=== PATIENT | male | born 1950 | race Caucasian/White ===

== ENCOUNTER → 2020-07-23 12:49 | Outpatient (BNVA) | payer MEDICARE, SELFPAY | PROVIDERS: Visit Provider Family Medicine | DX: Z01.812 Encounter for preprocedural laboratory examination (principal); Z20.828 Contact with and (suspected) exposure to other viral communicable diseases | CPT/HCPCS: 87635 ==

== ENCOUNTER 2021-05-19 08:26 | Outpatient (CLI) | payer MEDICARE, SELFPAY ==
--- NOTE | 2021-05-19 08:38 | XR_ITS ---
WS: [id number] LUMBAR SPINE TECHNIQUE: 3 views of the lumbar spine CLINICAL INFORMATION: BACK PAIN, LUMBAR, WITH RADICULOPATHY COMPARISON: None. FINDINGS: Five ydy-jna-aiosdtt lumbar vertebral bodies. Disc space heights are well preserved. No compression f ractures. Mild facet arthropathy L4-L5 and L5-S1. Vascular calcification.Slightly aneurysmal infraren al abdominal aorta measuring 3.2 cm in AP dimension. XR/XR lumbar spine 2-3V* [id number] IMPRESSION: 1. No acute lumbar spine findings. 2. Slightly aneurysmal infrarenal abdominal aorta measuring 3.2 cm in AP dimen deena. This can be further evaluated with ultrasound or CT abdomen pelvis.
== END 2021-05-19 08:27 | disposition home or self-care (01) ==
PROVIDERS: PCP Family Medicine; Visit Provider Clinical Nurse Specialist Adult Health
DX: M54.16 Radiculopathy, lumbar region (principal); I71.4 Abdominal aortic aneurysm, without rupture
CPT/HCPCS: 72100

== ENCOUNTER 2021-09-01 08:09 | Outpatient (CLI) | payer MEDICARE, SELFPAY ==
--- NOTE | 2021-09-01 08:45 | USCV_ITS ---
Ramiro Knig Age: 71 Gender: M : 1950 Exam Date: 09/01/2021 08:53 Ordering Phys: Soco Zhu MD ([email or web address]/[facility] [place] Technologist: TEMO Exam Location: [facility] – [place], [place] Indication: ANEURYSM OF ILIAC ARTERY HISTORY: Diameter (cm) AP x Transverse x Length Velocity (cm/s) Waveform Prox Aorta: 1.94 x 2.26 x 74.00 Mid Aorta: 2.41 x 2.49 x 59.70 Distal Aorta: 2.23 x 2.37 x 62.10 Right Iliac Prox: 1.23 x 1.85 x 68.60 Left Iliac Prox: 2.34 x 2.06 x 35.20 Stent Prox Landing x x Aneurysmal Sac Max x x Lt Lat Sac Dim Rt Lat Sac Dim Stent Dist Landing x x Right Iliac Stent x x Left Iliac Stent x x Right Renal Art Left Renal Art FINDINGS: Diffuse plaques in the abdominal aorta Fusiform dilatation of the left iliac artery measuring 2.34 x 2.06 cm CONCLUSIONS Left iliac artery aneurysm measuring 2.34 x 2.06 and admitted. Normal right proximal iliac artery dimensions Normal abdominal aortic dimensions. Mild to moderate diffuse plaques in the abdominal aorta No similar previous studies are available for comparison Dr Soco Zhu MD [facility] (Electronically Signed) Final Date: 02 September 2021 19:16 S
== END 2021-09-01 08:10 | disposition home or self-care (01) ==
LOC: RAD 08:14
PROVIDERS: PCP Family Medicine; Visit Provider Internal Medicine Cardiovascular Disease
DX: I72.3 Aneurysm of iliac artery (principal)
CPT/HCPCS: 93978

== ENCOUNTER → 2021-12-07 11:09 | Outpatient (BNVA) | payer MEDICARE, SELFPAY | PROVIDERS: PCP Family Medicine; Visit Provider Internal Medicine Cardiovascular Disease | DX: I25.10 Atherosclerotic heart disease of native coronary artery without angina pectoris (principal); I10 Essential (primary) hypertension; G47.33 Obstructive sleep apnea (adult) (pediatric); I71.2 Thoracic aortic aneurysm, without rupture; Z86.39 Personal history of other endocrine, nutritional and metabolic disease; Z79.82 Long term (current) use of aspirin | CPT/HCPCS: 99214 ==

== ENCOUNTER → 2021-12-17 11:11 | Outpatient (BNVA) | payer MEDICARE, SELFPAY | PROVIDERS: PCP Family Medicine; Visit Provider Podiatrist Foot & Ankle Surgery | DX: Z98.890 Other specified postprocedural states (principal) | CPT/HCPCS: 99213 ==

== ENCOUNTER 2021-12-25 07:44 | Outpatient (CLI) | payer MEDICARE, SELFPAY ==
--- NOTE | 2021-12-25 07:52 | XR_ITS ---
WS: [id number] RIGHT WRIST: 3 VIEW(S) TECHNIQUE: PA, oblique and lateral. HISTORY: R WRIST PAIN COMPARISON: None available. No acute fracture or dislocation. Well-corticated osseous density distal to the ulnar styloid. No joint space abnormality. No soft tissue swelling. XR/XR wrist RT min 3V* [id number] IMPRESSION: No acute fracture. No significant degenerative changes.
== END 2021-12-25 07:45 | disposition home or self-care (01) ==
LOC: RAD 07:46
PROVIDERS: PCP Family Medicine; Visit Provider Family Medicine
DX: M25.531 Pain in right wrist (principal)
CPT/HCPCS: 73110

== ENCOUNTER 2022-01-06 06:35 | Outpatient (CLI) | payer MEDICARE, SELFPAY ==
--- NOTE | 2022-01-06 07:00 | USCV_ITS ---
Ramiro King Age: 71 Gender: M : 1950 Exam Date: 01/06/2022 06:42 Ordering Phys: Soco Zhu MD ([email or web address]/[facility]) Technologist: [place] [facility] [place]: hx of acending aortra anuer and lt il dilation HISTORY: Diameter (cm) AP x Transverse x Length Velocity (cm/s) Waveform Prox Aorta: 2.20 x 2.37 x 104.60 Mid Aorta: 2.33 x 2.30 x 98.10 Distal Aorta: 2.33 x 2.72 x 86.30 Right Iliac Prox: 1.21 x 1.84 x 62.40 Left Iliac Prox: 2.27 x 2.26 x 78.50 Stent Prox Landing x x Aneurysmal Sac Max x x Lt Lat Sac Dim Rt Lat Sac Dim Stent Dist Landing x x Right Iliac Stent x x Left Iliac Stent x x Right Renal Art Left Renal Art FINDINGS: CONCLUSIONS Mild arteriovascular disease within the abdominal aorta. No evidence of abdominal aortic aneurysm Left common iliac aneurysm measuring 2.2 x 2.3cm Normal Right common iliac Demetrio Junior MD (Electronically Signed) Final Date: 06 Jan 2022 11:18 S
== END 2022-01-06 06:36 | disposition home or self-care (01) ==
LOC: RAD 06:36
PROVIDERS: PCP Family Medicine; Visit Provider Internal Medicine Cardiovascular Disease
DX: I71.2 Thoracic aortic aneurysm, without rupture (principal)
CPT/HCPCS: 93978

== ENCOUNTER → 2022-02-22 14:09 | Outpatient (BNVA) | payer MEDICARE, SELFPAY | PROVIDERS: PCP Family Medicine; Referring Provider Family Medicine; Visit Provider Specialist | DX: M25.531 Pain in right wrist (principal) | CPT/HCPCS: 36415; 73110; 80053; 85651; 86140; 86160; 86162; 86200; 86235; 86255; 86376; 86431; 99204 ==

== ENCOUNTER → 2022-03-02 10:32 | Outpatient (BNVA) | payer MEDICARE, SELFPAY | PROVIDERS: PCP Family Medicine; Visit Provider Orthopaedic Surgery | DX: M54.50 Low back pain, unspecified (principal) | CPT/HCPCS: 72110; 99204 ==

== ENCOUNTER → 2022-04-15 09:03 | Outpatient (BNVA) | payer MEDICARE, SELFPAY | PROVIDERS: PCP Family Medicine; Referring Provider Specialist; Visit Provider Specialist | DX: R20.0 Anesthesia of skin (principal); R20.2 Paresthesia of skin; M25.531 Pain in right wrist | CPT/HCPCS: 95910; 95912 ==

== ENCOUNTER 2022-04-19 12:18 | Outpatient (CLI) | payer MEDICARE, SELFPAY ==
--- NOTE | 2022-04-19 13:00 | MR_ITS ---
WS: [id number] INDICATION: RIGHT wrist pain TECHNIQUE: Axial T1, coronal T1, coronal PD, coronal STIR, coronal 3-D FSPGR, sagittal T1, axial T2. FINDINGS: Distal radius and ulna appear normal. Chronic ununited well-corticated styloid process frac ture. Mild cystic degenerative changes involving the proximal and distal carpal row. Normal scapholun ate interval. Normal bone marrow signal in the scaphoid and lunate. No acute appearing carpal bone fr actures. TFCC appears normal. Carpal tunnel appears normal. Normal extensor compartment tendons. MR/MR wrist RT wo con* [id number] IMPRESSION: 1. No acute RIGHT wrist findings
== END 2022-04-19 12:19 | disposition home or self-care (01) ==
PROVIDERS: PCP Family Medicine; Visit Provider Specialist
DX: M25.531 Pain in right wrist (principal)
CPT/HCPCS: 73221

== ENCOUNTER 2022-04-19 12:19 | Outpatient (CLI) | payer MEDICARE, SELFPAY ==
--- NOTE | 2022-04-19 13:45 | MR_ITS ---
WS: [id number] MRI LUMBAR SPINE NONCONTRAST TECHNIQUE: Sagittal T1, T2 and STIR imaging. Axial T1 and T2 imaging. CLINICAL INFORMATION: low back pain COMPARISON: Outside MRI [id number] 018 FINDINGS: Mild lumbar curve. No acute compression. No high-grade central canal stenosis. L1-L2: Normal. L2-L3: No significant disc bulging. Mild facet arthropathy. Spinal canal and foramen are patent. L3-L4: Mild annular bulging. Slight narrowing of the RIGHT subarticular recess. Slight encroachment t raversing RIGHT L4 nerve root. Foramen are patent. Mild facet arthropathy. This is progressed compare d to previous. L4-L5: Mild annular bulging. Mild RIGHT foraminal narrowing. Mild facet arthropathy. Slight narrowing of the subarticular recess bilaterally. LEFT foramen is patent. L5-S1: Mild annular bulging. Tiny annular fissure. Mild facet arthropathy. Spinal canal and foramen a re patent. Aneurysmal distal abdominal aorta measuring 2.5 x 2.7 cm AP by transverse. Partially thrombosed LEFT common iliac artery aneurysm measuring 2.2 cm appears unchanged from the prior studies. MR/MR lumbar spine wo con* [id number] IMPRESSION: 1. Mild lumbar curve. No acute compression. No high-grade central canal stenos is. 2. Mild annular bulging L3-L4 with impingement on the RIGHT subarticular reces s and traversing RIGHT L4 nerve root. This is new from previous. 3. Mild RIGHT L4-L5 foraminal narrowing similar to previous. Slight narrowing of the subarticular recess at this level. 4. Mild facet arthropathy L3-L5. 5. Aneurysmal distal abdominal aorta measuring 2.5 x 2.7 cm AP by transverse a ppears stable since 2018 6. Partially thrombosed LEFT common iliac artery aneurysm measuring 2.2 cm norm ears unchanged from the prior studies.
== END 2022-04-19 12:20 | disposition home or self-care (01) ==
PROVIDERS: PCP Family Medicine; Visit Provider Orthopaedic Surgery
DX: M51.26 Other intervertebral disc displacement, lumbar region (principal); M47.816 Spondylosis without myelopathy or radiculopathy, lumbar region; I71.4 Abdominal aortic aneurysm, without rupture; I72.3 Aneurysm of iliac artery
CPT/HCPCS: 72148

== ENCOUNTER 2022-04-21 12:52 | Outpatient (CLI) | payer MEDICARE, SELFPAY ==
--- NOTE | 2022-04-21 13:12 | XR_ITS ---
WS: [id number] Lumbar spine with flexion, extension, and neutral lateral, 04/21/2022 Clinical Data: VERTEBROGENIC LOW BACK PAIN Comparison: Lumbar spine, 03/02/2022. Findings: No compression fractures or subluxation is seen. No disc space narrowing is seen. No limitation of motion or subluxation is seen. The small abdominal aortic aneurysm measures 3.1 cm and has not changed. XR/XR lumbar spine f/e only [id number] Impression: 1. Negative for limitation of motion or subluxation on flexion or extension. 2. No change in small abdominal aortic aneurysm.
== END 2022-04-21 12:53 | disposition home or self-care (01) ==
PROVIDERS: PCP Family Medicine; Visit Provider Nurse Practitioner
DX: M54.51 Vertebrogenic low back pain (principal)
CPT/HCPCS: 72120

== ENCOUNTER → 2022-04-26 08:06 | Outpatient (BNVA) | payer MEDICARE, SELFPAY | PROVIDERS: PCP Family Medicine; Visit Provider Specialist | DX: M25.531 Pain in right wrist (principal); R20.0 Anesthesia of skin; R20.2 Paresthesia of skin | CPT/HCPCS: 99213 ==

== ENCOUNTER → 2022-05-06 08:31 | Outpatient (BNVA) | payer MEDICARE, SELFPAY | PROVIDERS: PCP Family Medicine; Visit Provider Physician Assistant | DX: M54.9 Dorsalgia, unspecified (principal); I71.4 Abdominal aortic aneurysm, without rupture | CPT/HCPCS: 99213; 99214 ==

== ENCOUNTER → 2022-05-20 08:32 | Outpatient (BNVA) | payer MEDICARE, SELFPAY | PROVIDERS: PCP Family Medicine; Referring Provider Specialist; Visit Provider Specialist | DX: G56.11 Other lesions of median nerve, right upper limb (principal); G54.1 Lumbosacral plexus disorders; Y84.2 Radiological procedure and radiotherapy as the cause of abnormal reaction of the patient, or of later complication, without mention of misadventure at the time of the procedure | CPT/HCPCS: 95860; 99202 ==

== ENCOUNTER → 2022-06-07 10:31 | Outpatient (BNVA) | payer MEDICARE, SELFPAY | PROVIDERS: PCP Family Medicine; Visit Provider Internal Medicine Cardiovascular Disease | DX: I71.21 Aneurysm of the ascending aorta, without rupture (principal); G47.33 Obstructive sleep apnea (adult) (pediatric); I10 Essential (primary) hypertension; I25.10 Atherosclerotic heart disease of native coronary artery without angina pectoris; E78.5 Hyperlipidemia, unspecified; I72.3 Aneurysm of iliac artery; Z87.891 Personal history of nicotine dependence | CPT/HCPCS: 99213; 99214 ==

== ENCOUNTER → 2022-07-22 08:41 | Outpatient (BNVA) | payer MEDICARE, SELFPAY | PROVIDERS: PCP Family Medicine; Referring Provider Anesthesiology Pain Medicine; Visit Provider Orthopaedic Surgery | DX: M54.9 Dorsalgia, unspecified (principal); G89.29 Other chronic pain | CPT/HCPCS: 99214 ==

== ENCOUNTER 2022-08-06 06:33 | Outpatient (CLI) | payer MEDICARE, SELFPAY ==
--- NOTE | 2022-08-06 | USCV_ITS ---
Ramiro King Age: 72 Gender: M : 1950 Exam Date: 08/06/2022 07:44 Ordering Phys: Soco Zhu MD ([email or web address]/[facility]) Technologist: CT [place] [facility] [place]: lft iliac aaa HISTORY: Diameter (cm) AP x Transverse x Length Velocity (cm/s) Waveform Prox Aorta: x x Mid Aorta: 2.21 x 2.21 x 76.20 Triphasic Distal Aorta: 2.21 x 1.96 x 76.20 Triphasic Right Iliac Prox: 1.45 x 1.28 x 70.40 Triphasic Left Iliac Prox: 2.47 x 2.57 x 68.35 Triphasic Stent Prox Landing x x Aneurysmal Sac Max x x Lt Lat Sac Dim Rt Lat Sac Dim Stent Dist Landing x x Right Iliac Stent x x Left Iliac Stent x x Right Renal Art Left Renal Art FINDINGS: stable lft iliac aaa prx ao not visualized Normal right proximal common iliac artery dimensions Aneurysmal dilatation of the left iliac artery CONCLUSIONS 1. Normal abdomen aortic dimensions 2. Left iliac artery aneurysm measuring 2.47 x 2.57 cm Compared to the study from 01/06/2022, there is slight increase in the size of the aneurysm Dr Soco Zhu MD [facility] (Electronically Signed) Final Date: 13 August 2022 19:04 S
== END 2022-08-06 06:34 | disposition home or self-care (01) ==
PROVIDERS: PCP Family Medicine; Visit Provider Internal Medicine Cardiovascular Disease
DX: I72.3 Aneurysm of iliac artery (principal)
CPT/HCPCS: 76706

== ENCOUNTER 2022-08-12 05:35 | Outpatient (CLI) | payer MEDICARE, SELFPAY | END 2022-08-12 07:05 | disposition home or self-care (01) | LOC: RT 09-14 05:35 | PROVIDERS: PCP Family Medicine; Visit Provider Orthopaedic Surgery | DX: Z13.6 Encounter for screening for cardiovascular disorders (principal) | CPT/HCPCS: 93005 ==

== ENCOUNTER 2022-08-20 07:16 | Day surgery (SDC) | payer MEDICARE, SELFPAY ==
[2022-08-12 08:16] VITALS: BMI 36.8
--- NOTE | 2022-08-12 08:35 | ECG_ITS ---
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 Measurements Intervals Dell Rate: 62 P: 54 LA: 183 QRS: 63 QRSD: 86 T: 59 QT: 383 QTc: 390 Interpretive Statements SINUS RHYTHM No previous ECG available for comparison Electronically Signed On 08-12-2022 10:15:54 IT RISK ANALYST by Vahe Choe M.D. [id number]
[2022-08-12 09:20] LABS: Basophils # 0.1 10^3/uL (0.0-0.1); Basophils % 0.9 %; Eosinophils # 0.2 10^3/uL (0.0-0.8); Eosinophils % 3.3 %; Hematocrit 42.2 % (42.0-52.0); Hemoglobin 14.1 g/dL (11.7-16.6); Lymphocytes # 1.6 10^3/uL (0.8-4.8); Lymphocytes % 27.2 %; Mean Corpuscular HGB Conc 33.4 g/dL (30.0-36.0); Mean Corpuscular Hemoglobin 31.1 pg (28.0-34.0); Mean Platelet Volume 11.1 fL (7.4-10.4); Monocytes # 0.6 10^3/uL (0.2-0.9); Neutrophils # 3.31 10^3/uL (1.8-7.7); Neutrophils % 58.1 %; Nucleated Red Blood Cells % 0 %; Platelet Count 196 10^3/cmm (130-400); Red Blood Count 4.54 10^6/uL (4.1-5.3); Red Cell Distribution Width 12.1 % (12.1-15.1); White Blood Count 5.7 10^3/uL (4.0-10.0)
[2022-08-12 09:37] LABS: Blood Urea Nitrogen 11 mg/dL (8-23); Calcium 9.3 mg/dL (8.5-10.5); Carbon Dioxide 26 mmol/L (22-29); Chloride 105 mmol/L (98-107); Glomerular Filtration Rate 83.4 mL/min (90-130); Glucose 145 mg/dL (65-115); Osmolality Calculated 290 mOsm/kg (285-295); Sodium 139 mmol/L (136-145)
--- NOTE | 2022-08-12 13:37 | ANES.PREANE2 ---
Pre-Anesthetic Assessment Height/Weight: Height 1.7 m Weight 106.594 kg Operation Date: 08/20/22 09:40 Proposed Procedures p Spincal Cord Stimulator Placement 73475/78273/M54.9/G89.29(Not Applicable) - Jatin Hamilton DO s Lumbar Laminectomy for impantion of neurostimulator paddle(Not Applicable) - Jatin Hamilton DO Familial anesthetic complications: none Was Beta Ronnell taken within 24 hours: Yes Was Clonidine taken within 24 hours: N/A Social No alcohol and No tobacco Exam alert, oriented x 3, clear to auscultation bilaterally and regular rate & rhythm Airway Submandibular: within normal limits Cervical ROM: Other (Limited extension (previous fusion)) Pulmonary Asthma and Sleep Apnea CV/HEM Coronary Artery Disease (stents), Hypertension, Myocardial Infarction and Peripheral Vascular Disease (Ascending AAA (4.3cm)) Metabolic Hyperlipidemia and Morbid Obesity [facility] [place] Lower Back Pain Neuropsych Neuropathy Anesthetic Plan ASA status: 3 Anesthesia: General Medications/Allergies Home Medications Medication Instructions Recorded Confirmed Last Taken Type aspirin 81 mg tablet,delayed 81 mg PO DAILY 12/02/20 08/12/22 Unknown History release (Adult Aspirin Regimen) cholecalciferol (vitamin D3) 125 125 mcg PO DAILY 12/02/20 08/12/22 Unknown History mcg (5,000 unit) capsule cyanocobalamin (vitamin B-12) 50 500 mcg PO DAILY 12/02/20 08/12/22 Unknown History mcg tablet (Vitamin B-12) tramadol 50 mg tablet 50 mg PO Q6H PRN Pain 12/02/20 08/12/22 Unknown History atorvastatin 40 mg tablet 20 mg PO DAILY #90 tabs 06/08/21 08/12/22 Unknown Rx nitroglycerin 0.4 mg sublingual 0.4 mg sublingual Q5M PRN chest 12/07/21 08/12/22 Unknown Rx tablet (Nitrostat) pain #30 tabs carvedilol 6.25 mg tablet 6.25 mg PO BID #180 tabs 01/21/22 08/12/22 Unknown Rx losartan 100 mg tablet 100 mg PO DAILY #90 tabs 04/05/22 08/12/22 Unknown Rx clopidogrel 75 mg tablet 75 mg PO DAILY #90 tabs 05/25/22 08/12/22 Unknown Rx Allergies Allergy/AdvReac Type Severity Reaction Status Date / Time morphine Allergy Severe severe Verified 07/22/22 09:16 vomiting hydrocodone Allergy severe N/V Verified 07/22/22 09:16 methadone Allergy Severe N/V Verified 07/22/22 09:16 oxycodone Allergy Severe N/V Verified 07/22/22 09:16 [facility] Anesthesia Medical History Chest pain CPAP (continuous positive airway pressure) dependence GERD (gastroesophageal reflux disease) History of hypertension History of obstructive sleep apnea History of prostate cancer Hx of aortic aneurysm Hx of hiatal hernia Hx of hyperlipidemia Hx of myocardial infarction Hx of peripheral neuropathy Hx of type 2 diabetes mellitus Vertigo Surgical History History of PTCA History of spinal surgery History of tonsillectomy and adenoidectomy Hx of appendectomy Hx of cholecystectomy Family History Mother CAD (coronary artery disease) Diabetes Family/Other CAD (coronary artery disease) Cancer Diabetes Brother CAD (coronary artery disease) Cancer Father CAD (coronary artery disease) Cancer Sister CAD (coronary artery disease) Grandmother Dementia Denies family history of Clotting disorder Chronic kidney disease (CKD) Suicide Anesthesia complication Bleeding disorder Lung disease Stroke Social History Smoking and tobacco status: former smoker Alcohol intake: never Data Anesthesia 08/12/22 08:40 08/12/22 08:40 Short CBC 08/12/22 Range/Units 08:40 WBC 5.7 (4.0-10.0) 10^3/uL Hgb 14.1 (11.7-16.6) g/dL Hct 42.2 (42.0-52.0) % MCV 93.0 (80-94) fl Plt Count 196 (130-400) 10^3/cmm Neut % (Auto) 58.1 % Neut # (Auto) 3.31 (1.8-7.7) 10^3/uL BMP 08/12/22 08:40 Sodium 139 Potassium 4.0 Chloride 105 Carbon Dioxide 26 BUN 11 Creatinine 0.9 Glucose 145 H Calcium 9.3 Cardiac Studies: No Data to Display
[2022-08-20] VITALS (11 sets, daily range): BP systolic 136–162; BP diastolic 72–97; PULSE 56–66; RESP 12–18; TEMP 36.6–37.6; O2SAT 92–99
--- NOTE | 2022-08-20 | XR_ITS ---
WS: [id number] Thoracic spine, C-arm fluoroscopy, 08/20/2022 Clinical Data: placement of spinal cord stimulator Comparison: None. Findings: Dr. Hamilton inserted a thoracic epidural thoracic cord stimulator XR/XR thoracic spine 2V [id number] Impression: Insertion of thoracic epidural thoracic cord stimulator.
[2022-08-20] MEDS: sodium chloride 0.9% 1,000 ML 30 ML IV (07:47)
--- NOTE | 2022-08-20 07:53 | P.ANESUD_ITS ---
Pre-Anesthetic Update Pre-Anesthetic Assessment: Date of Surgery/Procedure: 08/20/22 Preop Kylie gnosis: Chronic low back pain Proposed Procedure: Operation Date: 08/20/22 09:00 Proposed Procedures p Spinal Cord Stimulator and Generator Placement 52619/49054/M54.9/G89.29(Not Applicable) - Jatin Hamilton, DO s Lumbar Laminectomy for impantion of neurostimulator paddle(Not Applicable) - Jatin Hamilton, DO Any changes to Pre-Anesthetic Assessment?: No Last Intake: Intake Last Liquid Date 08/19/22 Last Liquid Time 20:30 Last Solid Date 08/19/22 Last Solid Time 20:30 Vitals: Temperature 99.7 F H 08/20/22 07:31 Temperature Source Temporal Artery S can 08/20/22 07:31 Pulse Rate 65 08/20/22 07:31 Respiratory Rate 16 08/20/22 07:31 Blood Pressure 159/97 08/20/22 07:31 Blood Pressure Angela n 117 08/20/22 07:31 Pulse Oximetry 96 08/20/22 07:31 Oxygen Delivery Me thod 08/20/22 07:31 Exam: Pre-Anes Outpt Exam: alert, oriented x 3, clear to auscultation bilaterally and regular rate & rhythm Cardiac Studies: No Data to Display
--- NOTE | 2022-08-20 08:55 | W.PM.OPSUD ---
Surgery/Procedure H&P Update DATE OF PROCEDURE: August 20, 2022 DATE H&P PERFORMED: 07/22/22 H&P UPDATE INFORMATION: I have reviewed H&P completed within last 30 days, I have examined patient prior to procedure and No changes to prior documentation PREOP DIAGNOSIS: Chronic low back pain PLANNED PROCEDURE: Operation Date: 08/20/22 09:00 Proposed Procedures p Spinal Cord Stimulator and Generator Placement 84223/86985/M54.9/G89.29(Not Applicable) - Jatin Hamilton DO s Lumbar Laminectomy for impantion of neurostimulator paddle(Not Applicable) - Jatin Hamilton DO
[2022-08-20] MEDS: clindamycin 900 MG/50 ML PREMIX 100 MG IV (09:11)
--- NOTE | 2022-08-20 11:22 | P.OP_ITS ---
Operative Report Date of procedure: August 20, 2022 Pre-op diagnosis: Preop Diagnosis Chronic low back pain Post-op diagnosis: same Procedure done: 1. Placement of neurostimulator paddle 2. Battery placement for neurostimulator Surgeon: Jatin Hamilton Estimated blood loss (mL): 25 Procedure: 1. Placement of neurostimulator paddle 2. Battery placement for neurostimulator Please about the options after undergoing anesthesia was placed in the prone position orders appear well-padded. Patient was prepped and draped in sterile fashion. As patient was prepped and draped. The C-arm was brought in to identify the T8-9 level this is the level of laminectomy. Skin tear is made over this T8-9 level subperiosteal dissection made out to the transverse processes of T8 and T9 retractors were placed. The interspinous ligament was taken down and high-speed bur was used to undermine at the lamina of T8 and curved curettes and Kerrisons were used to perform laminectomy and then the liga mentum flavum was taken down. The hockey-stick slider was then slid up underneath the vertebrae. And then the neurostimulator was placed the neurostimulator paddle was placed all the way up to the mid T6 body and all of T7 body. The wires were then sutured in the place onto the T9 spinous process. And then attention was brought to placing the battery. The skin's was made over the right flank subcu tissue dissection was made a pouch was made for the battery. Trial battery was inserted felt to be in good position. The wires from the thoracic spine were tunneled under the skin into the battery pouch. the leads for the battery were then inserted into the battery there are good locked into position. The battery wires were then coiled underneath the battery and the battery was placed into the subcu pouch and the skin of the thoracic spine and the battery were closed in a layered fashion with 0 Vicryl 2-0 Vicryl Monocryl suture. Sterile dressings were applied patient was transferred to the PACU in stable condition.
--- NOTE | 2022-08-20 11:53 | SUR.PHASEII ---
11:45 BONE STIMULATOR NERVE THEATER TEACHER AT BEDSIDE TO CALIBRATE PATIENT. ROM AND SENSATION IN ALL FOUR EXTREMITIES.
[2022-08-20] MEDS: TRAMadol 50 mg Tablet PO (13:10)
--- NOTE | 2022-08-20 14:38 | ANE.PACU2 ---
Inpatient post-anesthesia follow up: Airway intact: Yes Vital signs: Temperature 97.9 F Pulse Rate 62 Respiratory Rate 16 Blood Pressure 157/75 Pulse Oximetry 96 Oxygen Delivery Me thod Room Air Oxygen Flow Rate 6 Fraction of Inspir ed Oxygen Hydration adequate: Yes Nausea and vomiting: No Pain level: 1 Mental status: Baseline
== END 2022-08-20 13:20 | disposition home or self-care (01) ==
PROVIDERS: Anesthesiology; PCP Family Medicine; Visit Provider Orthopaedic Surgery
PROC: (CPT 63685; principal; 2022-08-20 08:50)
PROC: (CPT 63655; 2022-08-20 08:50)
DX: M54.50 Low back pain, unspecified (principal); G89.29 Other chronic pain; I25.10 Atherosclerotic heart disease of native coronary artery without angina pectoris; Z95.5 Presence of coronary angioplasty implant and graft; J45.909 Unspecified asthma, uncomplicated; I10 Essential (primary) hypertension; E78.5 Hyperlipidemia, unspecified; E66.01 Morbid (severe) obesity due to excess calories; Z68.36 Body mass index [BMI] 36.0-36.9, adult; Z79.82 Long term (current) use of aspirin; G47.33 Obstructive sleep apnea (adult) (pediatric); Z87.891 Personal history of nicotine dependence
CPT/HCPCS: 63655; 63685; 72070; 76000; 80048; 85025; C1778; C1820; J1100; J2405; J2704; J2710; J3010; J3490; J7030

== ENCOUNTER → 2022-09-02 12:45 | Outpatient (BNVA) | payer MEDICARE, SELFPAY | PROVIDERS: PCP Family Medicine; Visit Provider Physician Assistant | DX: Z96.89 Presence of other specified functional implants (principal); Z48.89 Encounter for other specified surgical aftercare | CPT/HCPCS: 99024 ==

== ENCOUNTER → 2022-09-08 13:13 | Outpatient (BNVA) | payer MEDICARE, SELFPAY | PROVIDERS: PCP Family Medicine; Referring Provider Specialist; Visit Provider Specialist | DX: G56.11 Other lesions of median nerve, right upper limb (principal); R25.1 Tremor, unspecified; G54.1 Lumbosacral plexus disorders; Y84.2 Radiological procedure and radiotherapy as the cause of abnormal reaction of the patient, or of later complication, without mention of misadventure at the time of the procedure; Z96.82 Presence of neurostimulator; M19.031 Primary osteoarthritis, right wrist; M19.032 Primary osteoarthritis, left wrist | CPT/HCPCS: 99215 ==

== ENCOUNTER 2022-10-07 05:58 | Outpatient (CLI) | payer MEDICARE, SELFPAY ==
--- NOTE | 2022-10-07 06:30 | USR_ITS ---
PROCEDURE INFORMATION: Exam: US Duplex Lower Extremity Arteries Exam date and time: 10/07/2022 6:33 AM Age: 72 years old Clinical indication: Pain; Leg, lower; Bilateral; Additional info: Leg pain TECHNIQUE: Imaging protocol: Real-time ultrasound scan of the arteries of the bilateral lower extremities with 2-D dozier scale, color Doppler flow and spectral waveform analysis. Images documented and saved. COMPARISON: CT chest abdpel w/*[id number] 08/02/2018 7:03 PM FINDINGS: Right common femoral artery: No occlusion or significant stenosis. Normal waveform. Right superficial femoral artery: No occlusion or significant stenosis. Normal waveform. Right popliteal artery: No occlusion or significant stenosis. Biphasic waveform. Right calf/foot arteries: No occlusion or significant stenosis in the visualized arteries. Biphasic waveforms. Dorsalis pedis artery is patent. Right lower extremity ADRIEL: 1.0 Left common femoral artery: No occlusion or significant stenosis. Normal waveform. Left superficial femoral artery: No occlusion or significant stenosis. Normal waveform. Left popliteal artery: No occlusion or significant stenosis. Biphasic waveform. Left calf/foot arteries: No occlusion or significant stenosis in the visualized arteries. Biphasic waveforms. Dorsalis pedis artery is patent. Left lower extremity ADRIEL: 1.0 US/[place] [id number] IMPRESSION: No stenosis or occlusion.
== END 2022-10-07 05:59 | disposition home or self-care (01) ==
LOC: RAD 06:00
PROVIDERS: PCP Family Medicine; Visit Provider Internal Medicine Cardiovascular Disease
DX: M79.606 Pain in leg, unspecified (principal); R20.0 Anesthesia of skin; R20.2 Paresthesia of skin
CPT/HCPCS: 93925

== ENCOUNTER → 2022-10-19 08:23 | Outpatient (BNVA) | payer MEDICARE, SELFPAY | PROVIDERS: PCP Family Medicine; Visit Provider Family Medicine | DX: N40.1 Benign prostatic hyperplasia with lower urinary tract symptoms (principal); R39.15 Urgency of urination; R07.9 Chest pain, unspecified; Z86.39 Personal history of other endocrine, nutritional and metabolic disease; I72.3 Aneurysm of iliac artery; G47.33 Obstructive sleep apnea (adult) (pediatric); I71.20 Thoracic aortic aneurysm, without rupture, unspecified; I25.10 Atherosclerotic heart disease of native coronary artery without angina pectoris; M54.9 Dorsalgia, unspecified; G89.29 Other chronic pain; Z85.46 Personal history of malignant neoplasm of prostate | CPT/HCPCS: 80053; 80061; 83036; 84153; 85025 ==

== ENCOUNTER → 2022-12-13 09:54 | Outpatient (BNVA) | payer MEDICARE, SELFPAY | PROVIDERS: PCP Family Medicine; Visit Provider Internal Medicine Cardiovascular Disease | DX: I25.10 Atherosclerotic heart disease of native coronary artery without angina pectoris (principal); I72.3 Aneurysm of iliac artery; G47.33 Obstructive sleep apnea (adult) (pediatric); I10 Essential (primary) hypertension; E78.5 Hyperlipidemia, unspecified; Z87.891 Personal history of nicotine dependence; Z79.82 Long term (current) use of aspirin | CPT/HCPCS: 99214 ==

== ENCOUNTER → 2022-12-28 14:05 | Outpatient (BNVA) | payer MEDICARE, SELFPAY | PROVIDERS: PCP Family Medicine; Visit Provider Specialist | DX: R25.1 Tremor, unspecified (principal); G56.11 Other lesions of median nerve, right upper limb; G54.1 Lumbosacral plexus disorders; Z96.82 Presence of neurostimulator; Y84.2 Radiological procedure and radiotherapy as the cause of abnormal reaction of the patient, or of later complication, without mention of misadventure at the time of the procedure | CPT/HCPCS: 99213 ==

== ENCOUNTER → 2023-04-13 10:13 | Outpatient (BNVA) | payer MEDICARE, SELFPAY | PROVIDERS: PCP Family Medicine; Visit Provider Specialist | DX: G56.11 Other lesions of median nerve, right upper limb (principal); G54.1 Lumbosacral plexus disorders; Y84.2 Radiological procedure and radiotherapy as the cause of abnormal reaction of the patient, or of later complication, without mention of misadventure at the time of the procedure | CPT/HCPCS: 99214 ==

== ENCOUNTER → 2023-04-19 08:51 | Outpatient (BNVA) | payer MEDICARE, SELFPAY | PROVIDERS: PCP Family Medicine; Visit Provider Family Medicine | DX: M54.9 Dorsalgia, unspecified (principal); G89.29 Other chronic pain; I10 Essential (primary) hypertension; Z86.39 Personal history of other endocrine, nutritional and metabolic disease; Z13.6 Encounter for screening for cardiovascular disorders | CPT/HCPCS: 80053; 80061; 83036 ==

== ENCOUNTER → 2023-07-11 09:41 | Outpatient (BNVA) | payer MEDICARE, SELFPAY | PROVIDERS: PCP Family Medicine; Visit Provider Internal Medicine Cardiovascular Disease | DX: I72.3 Aneurysm of iliac artery (principal); I25.10 Atherosclerotic heart disease of native coronary artery without angina pectoris; I10 Essential (primary) hypertension; E78.5 Hyperlipidemia, unspecified; M79.605 Pain in left leg; G47.33 Obstructive sleep apnea (adult) (pediatric); Z99.89 Dependence on other enabling machines and devices; Z87.891 Personal history of nicotine dependence | CPT/HCPCS: 99214 ==

== ENCOUNTER → 2023-09-15 10:56 | Outpatient (BNVA) | payer MEDICARE, SELFPAY | PROVIDERS: PCP Family Medicine; Visit Provider Family Medicine | DX: M53.3 Sacrococcygeal disorders, not elsewhere classified (principal); Z13.6 Encounter for screening for cardiovascular disorders; I25.10 Atherosclerotic heart disease of native coronary artery without angina pectoris; M54.9 Dorsalgia, unspecified; G89.29 Other chronic pain; G47.33 Obstructive sleep apnea (adult) (pediatric) | CPT/HCPCS: 80053; 80061; 85025 ==

== ENCOUNTER 2023-10-04 10:03 | Outpatient (CLI) | payer MEDICARE, SELFPAY ==
--- NOTE | 2023-10-04 10:06 | XRR_ITS ---
PROCEDURE INFORMATION: Exam: XR Bilateral Sacroiliac Joints Exam date and time: 10/04/2023 10:10 AM Age: 73 years old Clinical indication: Pain in coccyx area; Prior surgery; Surgery date: 6+ months; Surgery type: Cervical, various pain management procedures; Patient HX: Fall x 1 yr ago, pain sitting in hips/lower back, HX of prostate cancer; Additional info: M53.3 - sacrococcygeal disorders, not elsewhere classified TECHNIQUE: Imaging protocol: XR bilateral XR of the sacroiliac joints. Views: 3 or more views. COMPARISON: MR hip RT wo con* [id number] 08/02/2018 10:08 PM FINDINGS: Bones/joints: Minimal sclerotic changes are seen along the sacroiliac joints which are otherwise intact. No acute fracture. Soft tissues: Normal. XR/XR sacroiliac jts 3V [id number] IMPRESSION: No acute findings. Minimal degenerative changes along the sacroiliac joints.
== END 2023-10-04 10:04 | disposition home or self-care (01) ==
LOC: RAD 10:04
PROVIDERS: PCP Family Medicine; Visit Provider Family Medicine
DX: M53.3 Sacrococcygeal disorders, not elsewhere classified (principal); Z85.46 Personal history of malignant neoplasm of prostate; Z98.890 Other specified postprocedural states; Z91.81 History of falling
CPT/HCPCS: 72202

== ENCOUNTER → 2024-01-11 13:53 | Outpatient (BNVA) | payer MEDICARE, SELFPAY | PROVIDERS: PCP Family Medicine; Visit Provider Internal Medicine Cardiovascular Disease | DX: I25.10 Atherosclerotic heart disease of native coronary artery without angina pectoris (principal); I71.21 Aneurysm of the ascending aorta, without rupture; I10 Essential (primary) hypertension; E78.5 Hyperlipidemia, unspecified; Z87.891 Personal history of nicotine dependence | CPT/HCPCS: 99214 ==

== ENCOUNTER → 2024-01-31 14:34 | Outpatient (BNVA) | payer MEDICARE, SELFPAY | PROVIDERS: PCP Family Medicine; Visit Provider Orthopaedic Surgery | DX: M54.9 Dorsalgia, unspecified (principal); Z98.890 Other specified postprocedural states; Z96.89 Presence of other specified functional implants; G54.1 Lumbosacral plexus disorders; Y84.2 Radiological procedure and radiotherapy as the cause of abnormal reaction of the patient, or of later complication, without mention of misadventure at the time of the procedure | CPT/HCPCS: 72070; 72100; 99214 ==

== ENCOUNTER 2024-02-15 13:08 | Outpatient (CLI) | payer MEDICARE, SELFPAY ==
--- NOTE | 2024-02-15 13:17 | CT_ITS ---
WS: [id number] CTA CHEST ABDOMEN AND PELVIS TECHNIQUE: Noncontrast plus contrast enhanced CTA of the chest, abdomen, and pelvis with coronal and sagittal reformatted images and additional MIP Images. CLINICAL INFORMATION: AAA COMPARISON: CT 2018 and ultrasound 2021 DLP: 1441.[address] scans at [facility] use at least one of these dose optimization techniques: automated e xposure control; mA and/or kV adjustment per patient size (includes targeted exams where dose is matc hed to clinical indication); or iterative reconstruction. FINDINGS: Normal caliber thoracic aorta. Aortic calcification. Normal caliber descending thoracic aor ta. Proximal main pulmonary arteries are normal. Aortic calcification. Dense coronary calcification. Coronary stents. No mediastinal or hilar lymphadenopathy. No axillary lymphadenopathy. Mild thoracic curve. Mild thoracic kyphosis. Dorsal spinal stimulator. Lungs are well aerated. No acute pulmonary i nfiltrates. Few calcified granulomas. Small nodule LEFT upper lobe anteriorly measuring 3 mm. Recomme nd 12-month follow-up. Tiny subpleural nodule LEFT lower lobe. Additional 3 mm noncalcified nodule RI GHT upper lobe. LEFT iliac artery aneurysm measured 2.4 x 2.5 cm on the prior ultrasound 08/2022. Today this measures approximate 2.5 x 2.6 cm which appears stable considering differences in technique. Surrounding mura l thrombus. This also appears stable since the 2018 CT. Normal RIGHT common iliac artery with calcifi cation. Normal caliber abdominal aorta. Celiac and SMA are patent. Proximal iliac arteries are patent . Accessory RIGHT renal artery. LEEROY is patent. Slightly aneurysmal distal abdominal aorta measuring 2 .4 x 2.5 cm AP by transverse. This appears stable since the prior CT 2018. Normal liver. Small esophageal hiatal hernia. Fatty atrophy of the pancreas. Normal spleen. Adrenal g lands are normal. Normal renal parenchymal enhancement. No hydronephrosis. Sigmoid diverticulosis. No evidence of acute diverticulitis. Tiny fat-containing umbilical hernia. CT/CT [place] abdpe [id number] IMPRESSION: 1. Stable LEFT common iliac artery aneurysm described above. 2. Slightly aneurysmal distal abdominal aorta measuring 2.5 x 2.5 cm appears u nchanged since the CT 2018. 3. Celiac and SMA are patent. LEEROY is patent. 4. Normal caliber ascending and descending thoracic aorta. 5. A few scattered subcentimeter nodules. Recommend 12-month chest CT follow-u p. 6. No other acute findings.
[2024-02-15 14:32] LABS: Blood Urea Nitrogen 7 mg/dL (8-23)
[2024-02-15] MEDS: iohexol 350 mg/mL 500 mL Btl (per mL) IV (15:16)
== END 2024-02-15 13:09 | disposition home or self-care (01) ==
PROVIDERS: PCP Family Medicine; Visit Provider Internal Medicine Cardiovascular Disease
DX: I72.3 Aneurysm of iliac artery (principal); J84.10 Pulmonary fibrosis, unspecified; R91.8 Other nonspecific abnormal finding of lung field; I82.90 Acute embolism and thrombosis of unspecified vein; I70.8 Atherosclerosis of other arteries; K44.9 Diaphragmatic hernia without obstruction or gangrene; K86.89 Other specified diseases of pancreas; K57.30 Diverticulosis of large intestine without perforation or abscess without bleeding; I25.10 Atherosclerotic heart disease of native coronary artery without angina pectoris; M43.8X4 Other specified deforming dorsopathies, thoracic region; M40.204 Unspecified kyphosis, thoracic region; I70.0 Atherosclerosis of aorta
CPT/HCPCS: 71275; 74174; 82565; 84520; Q9967

== ENCOUNTER → 2024-03-15 09:47 | Outpatient (BNVA) | payer MEDICARE, SELFPAY | PROVIDERS: PCP Family Medicine; Visit Provider Family Medicine | DX: I10 Essential (primary) hypertension (principal); R07.89 Other chest pain; G47.33 Obstructive sleep apnea (adult) (pediatric); Z86.39 Personal history of other endocrine, nutritional and metabolic disease | CPT/HCPCS: 80053; 80061; 83036; 85025 ==

== ENCOUNTER → 2024-07-19 11:15 | Outpatient (BNVA) | payer MEDICARE, SELFPAY | PROVIDERS: PCP Family Medicine; Visit Provider Internal Medicine Cardiovascular Disease | DX: I25.10 Atherosclerotic heart disease of native coronary artery without angina pectoris (principal); I72.3 Aneurysm of iliac artery; I10 Essential (primary) hypertension; Z86.39 Personal history of other endocrine, nutritional and metabolic disease; Z87.891 Personal history of nicotine dependence | CPT/HCPCS: 99214 ==

== ENCOUNTER → 2024-09-13 10:56 | Outpatient (BNVA) | payer MEDICARE, SELFPAY | PROVIDERS: PCP Family Medicine; Visit Provider Family Medicine | DX: I10 Essential (primary) hypertension (principal); I72.3 Aneurysm of iliac artery; R07.89 Other chest pain; G47.33 Obstructive sleep apnea (adult) (pediatric); Z86.39 Personal history of other endocrine, nutritional and metabolic disease | CPT/HCPCS: 80053; 80061; 82607; 83036; 85025 ==

== ENCOUNTER → 2025-01-01 09:33 | Outpatient (BNVA) | payer MEDICARE, SELFPAY | PROVIDERS: PCP Family Medicine; Visit Provider Nurse Practitioner Family | DX: I25.10 Atherosclerotic heart disease of native coronary artery without angina pectoris (principal); Z86.39 Personal history of other endocrine, nutritional and metabolic disease; I71.21 Aneurysm of the ascending aorta, without rupture; I10 Essential (primary) hypertension; I72.3 Aneurysm of iliac artery; M53.3 Sacrococcygeal disorders, not elsewhere classified | CPT/HCPCS: 99214 ==

== ENCOUNTER 2025-01-31 06:45 | Outpatient (CLI) | payer MEDICARE, SELFPAY ==
[2025-01-31 08:15] LABS: Estmated Average Glucose 151; Hemoglobin A1C 6.9 % (4.0-6.0)
[2025-01-31 08:24] LABS: Basophils % 0.8 %; Eosinophils # 0.2 10^3/uL (0.0-0.8); Eosinophils % 3.4 %; Hematocrit 41.4 % (37-53); Lymphocytes # 1.7 10^3/uL (0.8-4.8); Lymphocytes % 31.5 %; Mean Corpuscular HGB Conc 33.8 g/dL (30-55); Mean Corpuscular Hemoglobin 31.1 pg (27-33); Mean Platelet Volume 11.2 fL (7.4-10.4); Monocytes # 0.5 10^3/uL (0.2-0.9); Monocytes % 9.4 %; Neutrophils # 2.86 10^3/uL (1.8-7.7); Neutrophils % 54.5 %; Nucleated Red Blood Cells % 0 %; Platelet Count 119 10^3/cmm (157-399); Red Cell Distribution Width 12.2 % (12.1-15.1); Slide Review Slide Review Perform; White Blood Count 5.24 10^3/uL (3.29-11.43)
[2025-01-31 08:25] LABS: Alanine Aminotransferase 14 U/L (0-41); Albumin Level 4.2 g/dL (3.5-5.2); Alkaline Phosphatase 50 U/L (40-130); Aspartate Amino Transferase 22 U/L (0-40); Blood Urea Nitrogen 14 mg/dL (8-23); Calcium 8.9 mg/dL (8.5-10.5); Carbon Dioxide 23 mmol/L (22-29); Chloride 104 mmol/L (98-107); Chol HDL Ratio 2.97 mg/dL (1.0-5.00); Cholesterol 92 mg/dL (0-200); Globulin 2.8 g/dL (1.3-4.6); Glucose 131 mg/dL (65-115); HDL Cholesterol 31 mg/dL (60-100); LDL Cholesterol Calculated 32 mg/dL (50-129); Osmolality Calculated 292 mOsm/kg (285-295); Sodium 140 mmol/L (136-145); Thyroid Stimulating Hormone 3.87 uIU/mL (0.27-4.20); Total Bilirubin 0.4 mg/dL (0.15-1.2); Triglycerides 144 mg/dL (0-150); VLDL Cholestrol Calculation 29 mg/dL (0-30); Vitamin B12 1465 pg/mL (232-1245)
[2025-01-31 08:34] LABS: Anion Gap 17.1 (5-19); Potassium 4.1 mmol/L (3.5-5.1)
== END 2025-01-31 06:46 | disposition home or self-care (01) ==
PROVIDERS: PCP Family Medicine; Visit Provider Family Medicine
DX: I10 Essential (primary) hypertension (principal); I25.10 Atherosclerotic heart disease of native coronary artery without angina pectoris; Z86.39 Personal history of other endocrine, nutritional and metabolic disease; M54.9 Dorsalgia, unspecified; G89.29 Other chronic pain; G47.33 Obstructive sleep apnea (adult) (pediatric); E03.9 Hypothyroidism, unspecified
CPT/HCPCS: 80053; 80061; 82607; 83036; 84443; 85025

== ENCOUNTER → 2025-03-11 08:06 | Outpatient (BNVA) | payer MEDICARE, SELFPAY | PROVIDERS: PCP Family Medicine; Visit Provider Family Medicine | DX: I10 Essential (primary) hypertension (principal) | CPT/HCPCS: 85025 ==

== ENCOUNTER → 2025-03-21 08:44 | Outpatient (BNVA) | payer MEDICARE, SELFPAY | PROVIDERS: PCP Family Medicine; Visit Provider Nurse Practitioner Family | DX: I25.10 Atherosclerotic heart disease of native coronary artery without angina pectoris (principal); I10 Essential (primary) hypertension; I72.3 Aneurysm of iliac artery; Z79.02 Long term (current) use of antithrombotics/antiplatelets; Z79.82 Long term (current) use of aspirin; Z98.61 Coronary angioplasty status; Z86.39 Personal history of other endocrine, nutritional and metabolic disease; Z87.891 Personal history of nicotine dependence; I25.2 Old myocardial infarction | CPT/HCPCS: 99213 ==

== ENCOUNTER → 2025-04-02 09:40 | Outpatient (BNVA) | payer MEDICARE, SELFPAY | PROVIDERS: PCP Family Medicine; Visit Provider Family Medicine | DX: N40.1 Benign prostatic hyperplasia with lower urinary tract symptoms (principal); R39.15 Urgency of urination; Z85.46 Personal history of malignant neoplasm of prostate | CPT/HCPCS: 84153 ==

== ENCOUNTER 2025-04-15 07:00 | Outpatient (CLI) | payer MEDICARE, SELFPAY ==
--- NOTE | 2025-04-15 08:15 | CT_ITS ---
WS: [id number] CT THORACIC SPINE TECHNIQUE: Noncontrast CT of the thoracic spine with coronal and sagittal reformatted images. CLINICAL INFORMATION: M54.14 - Radiculopathy, thoracic region DLP: 1040.[address] scans at [facility] use at least one of these dose optimization techniques: automated exposure control; mA and/or kV adjustment per patient size (includes targeted exams where dose is matched to clinical indication); or iterative reconstruction. FINDINGS: Mild thoracic curve. Mild thoracic kyphosis. Spinal cord stimulator in the midthoracic spine. Mild anterior hypertrophic changes. No acute compression fractures. No high-grade central canal stenosis. Moderate facet arthropathy lower thoracic spine. Disc space heights appear relatively well preserved. Aortic calcification. Coronary calcification. Tiny esophageal hiatal hernia. Adrenal glands are normal. CT/CT thoracic spin wo con* [id number] IMPRESSION: No acute thoracic spine findings.
--- NOTE | 2025-04-15 08:15 | CT_ITS ---
WS: [id number] CT CHEST TECHNIQUE: Contrast enhanced CT of the chest with coronal and sagittal reformatted images. CLINICAL INFORMATION: R91.8 - Other nonspecific abnormal finding of lung field COMPARISON: None. DLP: 610.[address] scans at [facility] use at least one of these dose optimization techniques: automated exposure control; mA and/or kV adjustment per patient size (includes targeted exams where dose is matched to clinical indication); or iterative reconstruction. FINDINGS: Previously described scattered subcentimeter pulmonary nodules are similar in appearance to previous. No new suspicious pulmonary nodules. A few subpleural nodules in the RIGHT lower lobe. A few small thyroid nodules. Aortic calcification. Coronary calcification. No mediastinal or hilar lymphadenopathy. Adrenal glands are normal. Fatty atrophy of the pancreas. Tiny esophageal hiatal hernia. Thoracic spinal stimulator in the midthoracic spine. CT/CT chest w con* [id number] IMPRESSION: 1. Previously described scattered subcentimeter pulmonary nodules are similar in appearance to previous. No new suspicious pulmonary nodules. 2. No other acute findings
[2025-04-15] MEDS: iohexol 350 mg/mL 500 mL Btl (per mL) IV (09:00)
== END 2025-04-15 07:01 | disposition home or self-care (01) ==
LOC: RAD 07:00
PROVIDERS: Radiology Diagnostic Radiology; PCP Family Medicine; Visit Provider Family Medicine
DX: R91.8 Other nonspecific abnormal finding of lung field (principal); M40.204 Unspecified kyphosis, thoracic region; G62.9 Polyneuropathy, unspecified; M47.24 Other spondylosis with radiculopathy, thoracic region
CPT/HCPCS: 71260; 72128; 82565; 84520

== ENCOUNTER → 2025-07-11 09:39 | Outpatient (BNVA) | payer MEDICARE, SELFPAY | PROVIDERS: PCP Family Medicine; Visit Provider Internal Medicine Cardiovascular Disease | DX: I25.10 Atherosclerotic heart disease of native coronary artery without angina pectoris (principal); I71.21 Aneurysm of the ascending aorta, without rupture; I72.3 Aneurysm of iliac artery; I10 Essential (primary) hypertension; E78.5 Hyperlipidemia, unspecified; Z87.891 Personal history of nicotine dependence | CPT/HCPCS: 99214 ==

== ENCOUNTER 2025-07-22 11:54 | Outpatient (CLI) | payer MEDICARE, SELFPAY ==
--- NOTE | 2025-07-22 12:30 | CT_ITS ---
WS: [id number] CT ANGIOGRAPHY chest, abdomen and pelvis. HISTORY: follow up of aneurysm TECHNIQUE: Pre and postcontrast angiogram performed. CT angiogram is performed during IV injection. Reformation images reviewed. All CT scans at [facility] use at least one of these dose optimization techniques: automated exposure control; mA and/or kV adjustment per patient size (includes targeted exams where dose is matched to clinical indication); or iterative reconstruction. CONTRAST: Omnipaque 350; 100 mL IV. DLP: 1447.89 mGy.cm COMPARISON: 02/15/2024, 04/15/2025 Thoracic aorta: Mild atherosclerosis thoracic aorta. Scattered calcified plaque with minimal intimal thickening. No plaque ulceration. Maximum diameter of the ascending aorta is 3.4 cm. Normal appearance of the sinus of Valsalva and aortic root. Normal diameter of the great vessels from the aortic arch. There is a small amount of plaque associated with the LEFT subclavian artery but no stenosis. No dissection. Normal size heart. No pericardial or pleural effusions. There are a few small pulmonary nodes which were recently described on a CT from 04/15/2025 which were stable with no interval change. There are a few benign granulomata. No mediastinal or hilar adenopathy. 13 mm RIGHT thyroid nodule is stable. Abdominal aorta: Mild ectasia and dilatation of the abdominal aorta. Diameter of the aorta is 2.6 cm. No para-aortic fluid collection. Mild stenosis origin of the celiac axis. Normal caliber SMA. Renal arteries are both patent. Mild atherosclerotic plaque at the aortic bifurcation. Reidentified is the LEFT iliac artery aneurysm with a maximum diameter of 2.7 cm. No adjacent hemorrhage. This aneurysm is similar to the prior study from 02/15/2024 without increase in size. Distal LEFT iliac arteries are patent. Mild atherosclerotic disease in the RIGHT common iliac artery with no occlusions or aneurysm. Visceral organs within the abdomen are normal. Prior cholecystectomy. No adenopathy or ascites. No GI tract obstruction. Prior appendectomy. Small umbilical hernia containing fat only. There are a few diverticula in the distal colon without acute diverticulitis. No renal mass or obstruction. No enhancing uroepithelial lesions in the bladder. No destructive bone lesions. Dorsal column stimulator noted in the mid thoracic subarachnoid space. CT/[facility] [id number] IMPRESSION: 1. No thoracic aortic aneurysm. 2. Very minimal ectasia and dilatation infrarenal abdominal aortic aneurysm wi th a maximum diam of 2.7 cm. Stable since 02/15/2024. 3. 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 4. Prior cholecystectomy. 5. Prior appendectomy.
[2025-07-22 12:34] LABS: Blood Urea Nitrogen 10 mg/dL (8-23)
[2025-07-22] MEDS: iohexol 350 mg/mL 500 mL Btl (per mL) IV (12:55)
== END 2025-07-22 11:55 | disposition home or self-care (01) ==
LOC: RAD 11:58
PROVIDERS: PCP Family Medicine; Visit Provider Internal Medicine Cardiovascular Disease
DX: I71.21 Aneurysm of the ascending aorta, without rupture (principal); I72.3 Aneurysm of iliac artery; Z90.49 Acquired absence of other specified parts of digestive tract; Z98.890 Other specified postprocedural states; I70.0 Atherosclerosis of aorta; I70.8 Atherosclerosis of other arteries; R93.89 Abnormal findings on diagnostic imaging of other specified body structures; K42.9 Umbilical hernia without obstruction or gangrene; K57.30 Diverticulosis of large intestine without perforation or abscess without bleeding; Z96.89 Presence of other specified functional implants
CPT/HCPCS: 71275; 74174; 82565; 84520

== ENCOUNTER → 2025-07-30 11:58 | Outpatient (BNVA) | payer MEDICARE, SELFPAY | PROVIDERS: PCP Family Medicine; Visit Provider Family Medicine | DX: I25.10 Atherosclerotic heart disease of native coronary artery without angina pectoris (principal); Z86.39 Personal history of other endocrine, nutritional and metabolic disease; D69.6 Thrombocytopenia, unspecified; G47.33 Obstructive sleep apnea (adult) (pediatric); R73.9 Hyperglycemia, unspecified; E03.9 Hypothyroidism, unspecified | CPT/HCPCS: 80053; 82607; 83036; 84443; 85025 ==